=== PATIENT | male | born 1970 | race Caucasian/White ===

== ENCOUNTER 2018-10-29 19:58 | Emergency (ER) | payer OTHER, BC ==
[~2018-10-29] VITALS: Ht 175.3 cm; Wt 86.2 kg
[2018-10-29 20:35] VITALS: BP 135/89
[2018-10-29] MEDS ORDERED: ACETAMINOPHEN 325 MG TAB PO ONE ×2 (23:15→23:30)
== END 2018-10-29 23:42 | disposition home or self-care (01) ==
LOC: ER 20:01
DX: S76.312A Strain of muscle, fascia and tendon of the posterior muscle group at thigh level, left thigh, initial encounter (principal); I10 Essential (primary) hypertension; R51 Headache; W21.03XA Struck by baseball, initial encounter; Y93.64 Activity, baseball; Y92.89 Other specified places as the place of occurrence of the external cause; Y99.8 Other external cause status
CPT/HCPCS: 73562; 73700